=== PATIENT | female | born 1940 | race Caucasian/White ===

== ENCOUNTER 2018-06-06 17:41 | Emergency (ER) | payer MEDICARE, OTHER, SELFPAY ==
[2018-06-06 17:43] VITALS: BP 118/74; PULSE 73; RESP 20; TEMP 36.6; O2SAT 98; BMI 33.0
[2018-06-06 19:44] VITALS: O2SAT 97
--- NOTE | 2018-06-06 19:50 | RAD_ITS ---
STUDY: X-RAY - UNILATERAL RIBS ( RIGHT ) WITH CHEST REASON FOR EXAM: Female, 77 years old. Right rib pain after fall TECHNIQUE - RIBS: 4 view(s) of the ribs. TECHNIQUE - CHEST: Single PA view of the chest. COMPARISON: None. FINDINGS - RIBS: Normal visualized ribs without a demonstrated fracture. FINDINGS - CHEST: The lungs are clear and expanded. There is no demonstrated pleural abnormality. Normal size heart. Normal mediastinum and elva. Normal visualized pulmonary arteries. Normal visualized aortic arch and descending thoracic aorta. There are diffuse degenerative changes of the visualized thoracic spine. Normal visualized ribs, clavicles, and shoulders. There is no demonstrated abnormality of the visualized soft tissue structures of the upper abdomen. RAD/Ribs Uni Min 3V w/PA Chest IMPRESSION: RIBS: Normal x-ray examination of the ribs. CHEST: Degenerative changes, as described above. No demonstrated acute cardiopulmonary process. Electronically Signed: Linda Babin MD at 20:23 EDT Tel , Service support ,
[2018-06-06 21:39] VITALS: PULSE 76; RESP 19; O2SAT 97
--- NOTE | 2018-06-06 22:28 | ED.DCSUM_ITS ---
- ER Visit Summary Date of Service: 06/06/18 Chief Complaint: Shortness of breath and chest pain History of Present Illness: The patient is a 77 F who had a mechanical fall 5 days ago. She did injure her left chest when she fell. She did not hit her head or neck. She did not lose consciousness. She denies head or neck pain. She does have pain in the right side of her chest in the area of her right breast. Worse with breathing such that it makes her mildly short of breath. No left-sided chest pain. No radiation. No nausea, lightheadedness, sweats. No weakness or numbness. She denies blood thinner use. Physical Examination: Afebrile and vital signs unremarkable. Head and neck are atraumatic. Heart is regular rate and rhythm. Lungs clear. Extremities show no evidence of trauma, tenderness, or edema, except for an abrasion to her anterior right knee. Knee shows good range of motion and extension. Neurovascularly intact distally. She is alert and oriented. Normal strength and sensation. Test Results: Chest x-ray and rib series showed no fracture or acute abnormalities. Emergency Department Course and Treatment: Patient declined pain medicine. I believe this is chest wall pain, secondary to her fall. Patient will use over- the-counter remedies. Return for any new or worsening issues. There is nothing to suggest cardiac or vascular pathology. Treatment Plan: As above Disposition: Discharged Impression: 1. Right chest wall pain This note was generated with [employer] dictation software. It may contain incorrect words, spelling, and punctuation that were not noted in review of the chart prior to signing ED Disposition - Plan for ED Patient: Chief Complaint: Shortness of Breath Referrals: Monika Lopez MD [Primary Care Provider] -
--- NOTE | 2018-06-06 22:29 | ED.DEP ---
ED Disposition - Plan for ED Patient: Chief Complaint: Shortness of Breath Instructions: ED Strain Chest Wall Referrals: Monika Lopez MD [Primary Care Provider] -
[2018-06-06 22:34] VITALS: BP 145/68; PULSE 78; RESP 18; O2SAT 96
== END 2018-06-06 22:35 | disposition home or self-care (01) ==
LOC: ED 19:23
PROVIDERS: Emergency Provider Emergency Medicine; Family Provider Internal Medicine; PCP Internal Medicine
DX: R07.89 Other chest pain (principal); S80.211A Abrasion, right knee, initial encounter; W19.XXXA Unspecified fall, initial encounter; Y93.9 Activity, unspecified; Y92.89 Other specified places as the place of occurrence of the external cause; Y99.9 Unspecified external cause status
CPT/HCPCS: 71101; 99282

== ENCOUNTER 2021-02-10 10:45 | Outpatient (RCR) | payer MEDICARE, OTHER, SELFPAY ==
[2021-02-10] MEDS: COVID-19 VACC, MRNA(PFIZER)/PF 30 MCG/0.3 ML SYRINGE IM (14:03)
[2021-03-03] MEDS: COVID-19 VACC, MRNA(PFIZER)/PF 30 MCG/0.3 ML SYRINGE IM (13:46)
== END 2021-05-09 23:59 ==
LOC: IMMUN 10:45
PROVIDERS: PCP Internal Medicine; Visit Provider Family Medicine
DX: Z23 Encounter for immunization (principal)
CPT/HCPCS: 0001A; 0002A; 91300

== ENCOUNTER → 2021-09-07 07:18 | Outpatient (CLI) | payer MEDICARE, OTHER, SELFPAY ==
--- NOTE | 2021-09-07 | IMM_PTH ---
PATIENT: YUSUF MCDOWELL LOC: [facility] U#:[id number] AGE/SX: 85/F ROOM: RE09/07/[address]: Dr. Aye Monet MD : 1940 BED: DIS: SPEC #: [id number] RECD: 09/08/21 10:47 STATUS: PUJA REQ #: [id number] EAN: 09/07/21 00:[address]: Aye Monet DEPT: IMMUNOHISTOCHEMISTRY RECD BY: Ratna Reyes ENTERED: 09/08/21 10:48 SP TYPE: IMMUNO OTHR DR: Dr. Monika Lopez MD Tissues: Left breast, NOS Procedures: CK8 (initial) CALPONIN-1 (add) CK5-6 (add) ER (add) HER2 CORNELIA (add) GA (add) P40 (add) PHYSICIAN & INSTITUTION [place] [id number] SPECIMEN INFORMATION: Tissue Source: Left breast, stereotactic core biopsy Clinical Info: 5 mm oval equal density asymmetry with a macro-lobulated margin in left breast central to nipple middle depth Specimen Number: [id number] #2 CPT code: 39696, 35192 x4, 19877 x3 METHODOLOGY: Deparaffinized sections of prefer/formalin-fixed tissue or PAP/DQ stained slides are incubated with monoclonal/polyclonal antibodies/oligonucleotide probes. Localization is made via biotin free immunoperoxidase method. Appropriate controls are performed and reacted as expected. Results on target cell population are indicated in the following table: RESULTS: ANTIBODY / CLONE RESULT Block 2 CK8 ([id number]) positive Calponin-1 (WD671B) positive, focal Actin (1A4) positive, focal CK5-6 (D5 & 1684) positive P40 (BC28) positive, focal MORPHOMETRIC ANALYSIS ER (clone 6F11) positive (>95%, strong intensity) GA (clone 16/1E2) positive (45%, weak to moderate intensity) Her-2Neu (clone CB11) negative (0) The prognostic test for HER2 is performed on formalin-fixed paraffin embedded tissue. A 3+ (positive) staining pattern is defined as intense, homogeneous, complete, circumferential membranous staining in >10% of contiguous tumor cells. A similar weak (2+) staining pattern is interpreted as equivocal. AMANUEL follow-up testing is recommended for all equivocal cases. Positivity/negativity for ER/GA is reported if > or < 1% of the tumor cells are immuno- reactive, respectively. The ASCO/CAP criteria is used for scoring. Reference: Journal of Clinical Oncology, 2013; 31:9718-9408 & 2010; 16:9550-4593. Duration of fixation: 11 Hrs; Sample Adequate: Yes. These assays have not been validated on decalcified tissues. Results should be interpreted with caution given the likelihood of false negativity on decalcified specimens. These tests were developed and their performance characteristics determined by [facility]. They may not have been cleared or approved by the U.S. Food and Drug Administration. The FDA has determined that such clearance or approval is not necessary. The above immunohistochemical/dualISH markers are ordered and reviewed by the Pathologist. 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 AM:wendy 09/12/2021 Case has been reviewed in consultation with Dr. Gifford who concurs with the above diagnosis. IDC:SJ
--- NOTE | 2021-09-07 08:20 | BRBX_PTH ---
PATIENT: YUSUF MCDOWELL LOC: [facility] U#:[id number] AGE/SX: 85/F ROOM: RE09/07/[address]: Dr. Aye Monet MD : 1940 BED: DIS: SPEC #: [id number] RECD: 09/07/21 09:06 STATUS: PUJA REYoan #: [id number] EAN: 09/07/21 08:[address]: Aye Monet DEPT: SURGICAL PATHOLOGY RECD BY: Kassandra Meraz ENTERED: 09/07/21 13:11 SP TYPE: BREAST BX OTHR DR: Dr. Monika Lopez MD Tissues: Left breast, NOS Procedures: Surgery Specimen Level IV HEADER OPERATION: Left breast stereotactic biopsy PRE-OP DIAGNOSIS: 5 mm oval equal density asymmetry with a macro-lobulated margin in the left breast central to the nipple middle depth TISSUE SUBMITTED: Left breast core tissue ISCHEMIC TIME: 1 minute FIXATION TIME: 11 hours MICROSCOPIC DIAGNOSIS Left breast, stereotactic biopsy: Ductal carcinoma insitu involving intraductal papilloma. Focal intraductal hyperplasia without atypia. Focal microcalcifications. See comment. AM:wendy 09/08/2021 COMMENT Immunohistochemistry ([id number]) for hormonal markers will be reported separately. This case was reviewed and diagnosis discussed with Dr. Stein on 10/19/21 and 10/20/21. Case has been reviewed in consultation with Dr. Gifford who concurs with the above diagnosis. IDC:QUINTIN MICROSCOPIC DESCRIPTION Slides are reviewed. GROSS DESCRIPTION Received in fixative is one container labeled with the patient's name and designated left breast. The specimen consists of multiple elongated fragments of bonilla-yellow fibroadipose tissue that in aggregate measure 5 x 3 x 0.6 cm. The entire specimen is submitted in four cassettes. / QUINTIN:wendy 09/07/21 TC:0 CPT: 58335 ADDENDUM ADDENDUM ADDENDUM ADDENDUM ADDENDUM 10/20/2021 11:47 ADDENDUM 10/20/2021 11:47 ADDENDUM 10/20/2021 11:47 ADDENDUM 10/20/2021 11:47 ADDENDUM 10/20/2021 11:47 Carcinoma greatest dimension = 5.5 mm Carcinoma nuclear grade = 1 AM:rg 10/20/2021
--- NOTE | 2021-09-07 19:59 | OP.PCM_ITS ---
Report of Operation Date of Procedure: 09/07/21 Surgery/Procedure Performed:: stereotactic breast biopsy Surgeon: Aye Monet Type of Anesthesia: Local Specimen's removed: breast tissue Estimated Blood Loss (mL): < 1 ml Description of Procedure: After informed consent was given, the patient was brought into the Breast Biopsy suite. Appropriate time out protocol was followed. The patient was placed in the prone position on the stereotactic biopsy table. The patient?s left breast was then placed in the opening at the head of the biopsy table. A wood machine carver compression mammogram was then obtained in the medial/lateral view. The suspicious radiological lesion was thus identified. Stereo pictures of the lesion were then taken for XYZ coordinates. The Mammotome biopsy stylus was then positioned where it would be entering into the patient?s breast. The skin at this site was then cleansed with a surgical skin preparation. The skin and subcutaneous tissues at this site were then infi ltrated with 1% xylocaine. A small skin incision was made with an 11 blade scalpel. The biopsy stylus was then positioned into the patient?s breast at the proper coordinates of depth. Using the Mammotome vacuum-assist device, several core samples of breast tissue were obtained. A specimen mammogram was the obtained. It revealed that small calcifications were within the specimen. I reviewed this personally and concluded that the tissue sampling was adequate. A hemostatic marker clip was then placed into the biopsy cavity and a wood machine carver film revealed that it was properly deployed. The incision site was closed with a nylon suture. The patient was then placed in the supine position and pressure was applied to the breast until no active bleeding was noted. Dressing was applied to the site. A unilateral mammogram in the CC and MLO view were then taken which revealed that the marker clip was in the same area as the previous suspicious lesion. The patient tolerated the procedure well and was discharged from the Breast Biopsy suite in good condition. Complications none noted
== END ==
PROVIDERS: PCP Internal Medicine; Referring Provider Surgery; Visit Provider Surgery
DX: D05.12 Intraductal carcinoma in situ of left breast (principal)
CPT/HCPCS: 19081; 88305; 88341; 88342; J7050; A4648

== ENCOUNTER 2021-10-03 09:41 | Day surgery (SDC) | payer MEDICARE, OTHER, SELFPAY ==
--- NOTE | 2021-10-02 13:29 | HP.PCM_ITS ---
History and Physical Date of Admission: 10/03/21 HISTORY AND PHYSICAL ? Arielle Zarate 1940 ? ? ? CHIEF COMPLAINT: left breast DCIS ? HPI: The patient is a 81 year old female presents with newly diagnosed left breast DCIS. She underwent US guided left breast biopsy with findings of intraductal papilloma done on 08/02/2021. This lesion was at the 4:00, retroareolar area of the breast. Because of this pathology - it was recommended that she undergo left breast biopsy via wire localization. She obtained a post marker clip mammogram for the US guided biopsy which essentially revealed that the ultrasound lesion did not correlate with the mammographic lesion. Therefore she underwent left stereotactic breast biopsy at [facility] on 09/07/2021. This lesion was at the 6:00 position, inferior aspect of the breast. Pathology from the stereotactic breast biopsy revealed ductal carcinoma in situ arising/involving from intraductal papilloma. She was recommended to continue with the left breast biopsy via wire localization, but I would add on a left breast lumpectomy via wire localization of the DCIS lesion. She notes no problems from the areas of the biopsies. ? ? PAST MEDICAL HISTORY ? Anxiety state, unspecified ? ? Asymptomatic varicose veins ? ? Varicose veins ? Benign mammary dysplasia, unspecified ? ? Benign mammary dys.--benign cyst on both ? Bilateral knee pain 08/10/2010 ? Diverticulosis of colon (without mention of hemorrhage) ? ? Family history of malignant neoplasm of gastrointestinal tract ? ? Internal hemorrhoids without mention of complication ? ? Mental disorder ? ? Other postablative hypothyroidism ? ? Status post radioactive iodine ablation ? Other specified gastritis ? ? Personal history of colonic polyps ? ? Thyrotoxicosis without mention of goiter or other cause, without mention of thyrotoxic crisis or storm ? ? hypothyrodism ? PAST SURGICAL HISTORY ? ABDOMINAL SURGERY HX ? ? ? BREAST BIOPSY W/STEREOTACTIC GUIDANCE Left 09/07/2021 ? COLONOSCOP W/ OR W/O BRSH SPEC ? 08/08/2004 ? Colonoscopy-- ? COLONOSCOP W/ OR W/O BRSH SPEC ? 12/05/2005 ? Colonoscopy, repeat in 5 years ? COLONOSCOP W/ OR W/O BRSH SPEC ? 01/23/2011 ? COLONOSCOP W/ OR W/O BRSH SPEC ? 05/17/2016 ? Colonoscopy ? COLONOSCOP W/ OR W/O BRSH SPEC ? 05/23/2021 ? EGD ? 08/08/2004 ? biopsy ? JOINT REPLACEMENT HX ? ? ? PAST SURGICAL HISTORY OF ? 05/2008 ? Left knee reconstruction and replacement (At [facility] in [place]) ? PAST SURGICAL HISTORY OF ? 2008 ? right knee replacement ? REMOVAL ADENOIDS,PRIMARY,<12 Y/O ? ? ? Adenoidectomy ? REMOVAL GALLBLADDER ? ? ? Cholecystectomy ? REMOVAL OF TONSILS,<12 Y/O ? ? ? Tonsillectomy-at age 4 years ? SIGMOIDOSCOPY FLEX DIAG ? 10/09/2004 ? Sigmoidoscopy- polypectomy ? TONSILLECTOMY HX ? Current Outpatient Medications ? levothyroxine (LEVOXYL) 75 mcg tablet Take 1 tablet by mouth once daily. Take on empty stomach. For thyroid. ? OLANZapine (ZYPREXA) 5 mg tablet Take 1 tablet by mouth daily at bedtime. ? escitalopram oxalate (LEXAPRO) 10 mg tablet Take 1 tablet by mouth once daily. ? polyethylene glycol 3350 (MIRALAX, GLYCOLAX) 17 gram/dose powder Use as directed for Miralax / Gatorade Bowel Prep Kit ? Bisacodyl (DULCOLAX) 5 mg tab Use as directed for Miralax / Gatorade Bowel Prep Kit ? tiZANidine (ZANAFLEX) 2 mg tablet Take 1 tablet by mouth every 8 hours as needed. for right side back pain. May make drowsy ? mometasone (ELOCON) 0.1 % cream Apply to affected area once daily. For af fected area on scalp (Patient not taking: Reported on 08/02/2021 ? ? ALLERGIES: Augmentin [Amoxicillin-Pot Clavulanate], Cephalosporins, Keflex [Cephalexin], Latex, Levaquin [Levofloxacin], and Seroquel [Quetiapine] ? PERSONAL HISTORY: ? Smoking status: Never Smoker ? Smokeless tobacco: Never Used Vaping Use ? Vaping Use: Never used Substance Use Topics ? Alcohol use: No ? Drug use: No ? FAMILY HISTORY: FAMILY HISTORY Problem Relation Age of Onset ? Stroke Mother 90 ? Colon Polyps Father ? ? in his 80's ? Cancer Father ? ? pancreatic and colon ? Hypertension Father ? ? other (Aortic Aneurysm) Father ? ? AAA-- from this ? other (Bladder Cancer) Brother ? ? Was told had kidney ? Cancer Maternal Grandmother ? ? pancreatic or liver cancer--they were not sure ? Heart Paternal Grandfather ? ? AL at age 90 ? other (Multiple Sclerosis) Son ? ? Heart Maternal Aunt ? ? AL ? Cancer Maternal Uncle ? ? unkown type ? Breast Cancer Maternal Uncle ? ? Several Aunts ? ? REVIEW OF SYSTEMS: Denies fevers ? PHYSICAL EXAMINATION: General: The patient is 81 year old female, well nourished, well hydrated in no acute distress. The patient is oriented to time, place, and person. VITALS: Blood pressure 132/72, pulse 88, temperature 37 ?C (98.6 ?F), height 167.6 cm (5' 6), weight 94.3 kg (208 lb), SpO2 95 %. Body mass index is 33.57 kg/m?. HEENT: Normal cephalic, atraumatic, pupils are equally round, sclera are clear, neck is supple Respiratory: Normal respiratory excursion and pattern. Chest/breast: healing biopsy sites Abdomen: benign . ? Extremities: no clubbing, cyanosis or edema. ? Neuro: non focal ? Psych: calm and appropriate RADIOLOGIC STUDIES: As Noted ? IMPRESSION: left breast DCIS, intraductal papilloma at another location ? PLAN: The patient is already scheduled for a left breast biopsy via wire localization for intraductal papilloma by US needle core biopsy. I have therefore recommended for patient to undergo left breast lumpectomy via wire localization for the newly diagnosed DCIS and to continue with the plan for left breast biopsy. This will require placement of two wires for localization and also for two incisions as these are different locations. Risks, including but not limited to: infection, bleeding, scar tissue, injury to any blood vessels/nerves, cosmetic deformity, etc. - she understands and agrees to proceed. The alternative would be to undergo a left breast mastectomy, patient does not want to do that. I have answered all her questions and she has no further questions. ? ? Aye Monet MD
--- NOTE | 2021-10-03 | BRBX_PTH ---
PATIENT: YUSUF MCDOWELL [place]: [facility] [place] U#:[id number] AGE/SX: 81/F ROOM: RE10/03/[address]: Dr. Aye Monet MD : 1940 BED: DIS: 10/03/2021 SPEC #: [id number] RECD: 10/03/21 13:12 STATUS: PUJA REYoan #: [id number] EAN: 10/03/21 00:[address]: Aye Monet DEPT: SURGICAL PATHOLOGY RECD BY: Ratna Reyes ENTERED: 10/03/21 14:17 SP TYPE: BREAST BX OTHR DR: Dr. Monika Lopez MD Tissues: Left breast, NOS Procedures: Surgery Specimen Level V HEADER OPERATION: Breast lumpectomy, NL PRE-OP DIAGNOSIS: Intraductal papilloma left breast TISSUE SUBMITTED: Left breast lumpectomy, two long sutures ? nipple, one long suture ? lateral, one short suture ? superior, one white suture ? posterior border MICROSCOPIC DIAGNOSIS Left breast, lumpectomy with needle localization: Negative for residual ductal carcinoma in situ. Changes consistent with previous biopsy site. Focal intraductal hyperplasia without atypia. Ductal dilatation and periductal chronic inflammation. SJ:wendy 10/06/2021 COMMENT Please make reference to previous specimen ([id number]) left breast, stereotactic core biopsy with diagnosis of ?ductal carcinoma in situ involving intraductal papilloma and focal intraductal hyperplasia without atypia. MICROSCOPIC DESCRIPTION Slides are reviewed. GROSS DESCRIPTION Received fresh for intraoperative consultation labeled with the patient's name is a specimen designated left breast lumpectomy. The specimen consists of a piece of fibroadipose tissue with needle localization x2 measuring 9 x 7 x 5 cm. A piece of skin is noted anteriorly measuring 2 x 0.3 cm. The specimen is inked as follows: anterior - yellow, posterior - black, superior - blue, inferior - green, medial - orange and lateral ? red, nipple ? kala. Serial sections reveal a biopsy cavity measuring 1 x 1 x 1 cm. This biopsy cavity is 1 cm away from anterior and inferior margins. This information is conveyed to the surgeon intraoperatively. Sections of the rest of the specimen reveal bonilla-yellow adipose cut surfaces mixed with bonilla-white fibrous area. Parking Lot Attendant sections are submitted in 12 cassettes as follows: 1 ? skin and perpendicular medial and lateral margin, 2 ? perpendicular superior and inferior margin, 3 ? perpendicular anterior and posterior margins, 4-7 ? biopsy cavity with surrounding area biopsy, 8 & 9 ? area marked as nipple, 10-12 ? b2b outside sales representative sections from the other areas. Sections will be submitted after additional fixation. / QUINTIN:wendy 10/04/21 TC:5 CPT: 70517, 51420
[2021-10-03 10:18] VITALS: BP 147/66; PULSE 58; RESP 16; TEMP 36.4; O2SAT 99; BMI 32.8
[2021-10-03] MEDS: Lactated Ringers 1,000 ML 75 ML IV (10:23)
--- NOTE | 2021-10-03 11:58 | BI_ITS ---
SURGICAL BREAST SPECIMEN RADIOGRAPH CLINICAL: Document presence of tissue clip markers in biopsy specimen. FINDINGS: Specimen shows presence of tissue clip markers. Pathology is pending and an addendum to the biopsy report will be performed after the final pathologic diagnosis is rendered. Electronically Signed: Yuan Barrios MD at 14:14 EDT , Service support , BI/Breast Biopsy Specimen
--- NOTE | 2021-10-03 12:02 | OP.PCM_ITS ---
Report of Operation Date of Procedure: 10/03/21 Pre-Operative Diagnosis: intraductal papilloma of left breast, DCIS of left víctor ast Post-Operative Diagnosis: same Surgery/Procedure Performed:: left breast lumpectomy x 2 Surgeon: Aye Monet executive marketing assistant: Andrew Monzon Type of Anesthesia: General Anesthesiologist: Tommy Hay Description of Procedure: After informed consent was given, the patient was brought into the Breast Stereotactic Radiology suite. Appropriate time out protocol was followed. The patient was then placed in the prone position on the [place] stereotactic table. The patient?s left breast was placed in the opening at the head of the table. A hospitality team member compression mammogram was then obtained in the lateral view. The inferior marker clip that was previously placed was identified. Stereo pictures of the lesion were then taken for XYZ coordinates. The Kopans needle was then positioned where it would be entering into the patient?s breast. The skin at this site was then cleansed with a surgical skin preparation. The skin and subcutaneous tissues at this site were then infiltrated with 1% xylocaine. The Kopans needle was then positioned into the patient?s breast at the proper coordinates of depth. A hospitality team member film was obtained which revealed the wire in proper position. The patient was then placed in the supine position and the wire was taped into place. The other marker clip that was previously placed was identified. Stereo pictures of the lesion were then taken for XYZ coordinates. The Kopans needle w as then positioned where it would be entering into the patient?s breast. The skin at this site was then cleansed with a surgical skin preparation. The skin and subcutaneous tissues at this site were then infiltrated with 1% xylocaine. The Kopans needle was then pos A unilateral mammogram in the CC view was then taken for use in the OR. The patient tolerated this portion of the procedure well and was brought to the AC awaiting surgery in the OR. The patient was then brought to the Operating Room. Appropriate time out protocol was followed. The patient was then placed on the operating table in the supine position. Two wires had already been placed in the stereotactic biopsy room in the radiology department as described above. The left breast with the wires in placed was then prepped with a sterile surgical skin preparation and sterile surgical drapes were placed. The skin and subcutaneous tissues at the sites of the breast lesion was then infiltrated with 1% xylocaine with epinephrine. The position of the wires and the mammograms were carefully examined. I felt that rather than make two incision sites, the lesions were close in proximity to be able to extract the breast tissue via one incision. A low transverse incision was made in the left breast with a 15 blade scalpel after infiltrating the skin and subcutaneous tissues with local anesthetic. The superior wire was brought into the wound from outside. The breast tissue surrounding both wires was then carefully palpated out and from the surrounding tissues using electrocautery. There was dense breast tissue attached to the nipple, therefore a suture was placed at the transected nipple ducts for pathology. The breast tissue, once from the breast, was then forwarded to the radiology department, where a specimen mammogram revealed that the marker clip was within the specimen. The breast tissue was then forwarded to pathology for analysis. Pathology review revealed that the closest margin was inferior with 1 cm. The wound cavity was carefully examined. No further suspicious tissue was palpated or visualized. Hemostasis was carefully controlled with electrocautery. The subdermal tissues were then approximated with vicryl suture. The incision was then reapproximated close using running monocryl suture. The incision was then reapproximated close using running monocryl suture. Cavilon and steristrips were then placed to reinforce the skin closure at both sites. Sponge, needle, and instrument count were verified and correct at the time of skin closure. Sterile dressings were then applied to both sites. The patient was then brought to the Recovery Room in stable condition.
[2021-10-03] MEDS: Lidocaine 1% /Epi 1:100 (50ml) 50 ML VIAL ×2 (12:28→13:22)
[2021-10-03 13:35] VITALS: BP 122/58; BP 147/66; PULSE 76; RESP 16; TEMP 36.3; O2SAT 95
[2021-10-03 13:45] VITALS: BP 122/58; BP 147/66; PULSE 75; RESP 16; O2SAT 96
[2021-10-03 14:00] VITALS: BP 124/76; BP 147/66; PULSE 77; RESP 16; O2SAT 98
[2021-10-03 14:15] VITALS: BP 128/65; BP 147/66; PULSE 75; RESP 16; TEMP 36.4; O2SAT 96
[2021-10-03 14:47] VITALS: BP 147/66
--- NOTE | 2021-10-03 15:23 | DCINST_ITS ---
Discharge Instructions Follow Up Care Test Results: Test results from this visit will be discussed in further detail at your follow-up appointment, if applicable. Discharge Plan Admission Attending Provider: Aye Monet Primary Care Provider: Monika Lopez Instructions Additional Instructions / Restrictions: Recommended pain control regimen - May take 600 mg ibuprofen (Motrin) and then in 3-4 hours, may take 650 mg acetaminophen (Tylenol), then in 3-4 hours may take 600 mg ibuprofen, then in 3- 4 hours may take 650 mg acetaminophen and so on for 2-3 days May take narcotic pain medication for pain that is not controlled by above and at night for comfort through the night Leave dressings in place May shower, do not scrub in the areas of the dressings as they may unravel. Do not soak - no tub baths/swimming Ice applied to areas of discomfort may help For breast surgeries - wear supportive bra during the day to prevent the weight of your breasts from pulling on the incisional site. Please call my office for an appointment to see me in 1 week. Office number is If any questions, please call my office at and ask the polishing machine operator for the general surgery nurses desk Discharge Orders/Prescriptions Prescriptions: New hydrocodone-acetaminophen 5-325 mg tablet 1 tab PO Q8H 5 Days Qty: 15 RF: 0 No Action levothyroxine 100 MCG tablet 75 mcg PO DAILY RF: 0 olanzapine 5 MG tablet,disintegrating 5 mg PO DAILY RF: 0 escitalopram oxalate 10 MG tablet 10 mg PO DAILY RF: 0 Referrals / Follow Up: Monika Lopez MD [Primary Care Provider] -
== END 2021-10-03 15:06 ==
LOC: SDC 09:43 → AC 09:44
PROVIDERS: PCP Internal Medicine; Referring Provider Surgery; Visit Provider Surgery
PROC: (CPT 19301; principal; 2021-10-03 11:30)
DX: D05.12 Intraductal carcinoma in situ of left breast (principal); Z79.51 Long term (current) use of inhaled steroids; Z79.899 Other long term (current) drug therapy; Z80.3 Family history of malignant neoplasm of breast; Z82.49 Family history of ischemic heart disease and other diseases of the circulatory system; Z87.19 Personal history of other diseases of the digestive system; Z88.0 Allergy status to penicillin; Z88.1 Allergy status to other antibiotic agents; Z90.49 Acquired absence of other specified parts of digestive tract; Z96.653 Presence of artificial knee joint, bilateral
CPT/HCPCS: 19301; 19281; 19282; 76098; 88305; 88307; J7120; J2405

== ENCOUNTER 2022-06-06 12:39 | Emergency (ER) | payer MEDICARE, OTHER, SELFPAY ==
[2022-06-06] VITALS (8 sets, daily range): BP systolic 102–147; BP diastolic 51–86; PULSE 64–82; RESP 15–18; TEMP 35.6; O2SAT 97–99; BMI 30.9
[2022-06-06 13:22] LABS: Amphetamine Urine VISTA NEGATIVE (<1000 ng/mL); Barbiturate Urine VISTA NEGATIVE (< 200 ng/mL); Benzodiazepine Urine VISTA NEGATIVE (< 200 ng/mL); Cocaine Urine VISTA NEGATIVE (< 300 ng/mL); Ecstacy Urine VISTA NEGATIVE (< 500 ng/mL); Methadone Urine VISTA NEGATIVE (< 300 ng/mL); PCP Urine VISTA NEGATIVE (< 25 ng/mL); THC Urine VISTA NEGATIVE (< 50 ng/mL); Vista UDS pH Range 7
[2022-06-06 13:58] LABS: Absolute Lymphocyte Count 1.83 X10^3/uL (0.83-4.51); Absolute Neutrophil Count 5.8 X10^3/uL (2.0-7.7); Basophil# 0.04 X10^3/uL; Basophil% 0.5 % (0-1); Eosinophil# 0.04 X10^3/uL; Eosinophils% 0.5 % (0-5); Hematocrit 45.4 % (37-47); Lymphocyte # 1.83 X10^3/ul (0.83-4.51); Lymphocyte % 21.8 % (19-41); Mean Corpuscular Hgb 30.9 pg (27.0-32.0); Mean Corpuscular Volume 93.6 fL (81-99); Mean Platelet Vol. 10.9 fl (6.2-12.0); Monocyte# 0.67 X10^3/uL; NRBC Flagged by Analyzer 0 % (0-5); Neutrophil # 5.79 X10^3/uL (2.7-7.7); Neutrophil % 68.7 % (47-70); Platelet Count 183 K/mm3 (150-450); RBC Distribution Width CV 13.7 % (11.6-14.6); RBC Distribution Width SD 47.2 fl (35.1-43.9); Red Blood Count 4.85 M/mm3 (4.2-5.4); White Blood Count 8.4 K/mm3 (4.4-11.0)
[2022-06-06 14:08] LABS: Anion Gap 7 (5-15); BUN 6 mg/dL (7-18); BUN/Creat Ratio 6.1 RATIO (10-20); Calcium,Total 9.8 mg/dL (8.5-10.1); Chloride 105 mmol/L (98-107); Creatinine, Serum 0.99 mg/dL (0.55-1.02); EST Glomerular Filtration Rate 58 mL/min (>60); Est Glom Filt Rate - Afr Amer 70 mL/min (>60); Estimated Creatinine Clearance 43.14 ml/min; Glucose 109 mg/dL (74-106); Potassium 3.3 mmol/L (3.5-5.1); Sodium Level 140 mmol/L (136-145)
--- NOTE | 2022-06-06 14:32 | EX.ED.VIS.PS ---
HPI HPI - Psych History of Present Illness Chief Complaint: Mental Health Informant: patient and mental health staff Narrative Narrative: 81-year-old female sent in by counseling center after being evaluated for paranoia. Patient states there is someone watching her through her phone. She is fearful of her phone and does not know what to do. She is fearful that people are out to get her. She lives alone. Counselor concerned about her ability to care for herself. She denies suicidal or homicidal ideation. Denies alcohol or drug use. Recent Illness/Hospitalization: No PFSH PFSH Medical History Ambulates with cane Depression Hx of thyroid disease Injury of head and neck Non-smoker Thyroid disease Wears dentures Wears glasses Home Medications escitalopram oxalate 10 mg tablet 10 mg PO DAILY 06/06/18 [History Last Taken Unknown] levothyroxine 100 mcg tablet 75 mcg PO DAILY 06/06/18 [History Last Taken Unknown] olanzapine 5 mg disintegrating tablet 5 mg PO DAILY 06/06/18 [History Last Taken Unknown] hydrocodone-acetaminophen 5-325mg 5mg-325mg 1 tab PO Q8H 5 days #15 tabs 10/03/21 [Rx Last Taken Unknown] Allergy/AdvReac Type Severity Reaction Status Date / Time amoxicillin [From Augmentin] Allergy Other Verified 06/06/22 12:43 cephalexin [From Keflex] Allergy Rash Verified 06/06/22 12:43 Cephalosporins Allergy Other Verified 06/06/22 12:43 clavulanic acid Allergy Other Verified 06/06/22 12:43 [From Augmentin] levofloxacin [From Levaquin] Allergy Other Verified 06/06/22 12:43 quetiapine [From Seroquel] Allergy Other Verified 06/06/22 12:43 Surgical History Hx laparoscopic cholecystectomy Hx of adenoidectomy Hx of breast biopsy Hx of tonsillectomy Hx of total knee arthroplasty Social History Smoking Status: Never smoker ROS ROS ED Constitutional Constitutional ED: Denies fever(s) Eyes Eyes: Denies change in vision ENT ENT ED: Denies rhinorrhea Cardiovascular Cardiovascular: Denies chest pain Respiratory/Chest Respiratory/Chest: Denies dyspnea Gastrointestinal Gastrointestinal: Denies abdominal pain Musculoskeletal Musculoskeletal: Denies back pain Integumentary Denies rash Neurologic Neurologic: Denies headache(s), paresthesias or weakness Psychiatric Psychiatric: Reports anxiety; Denies suicidal ideation EXAM Physical Exam Const Vital Signs: 06/06/22 12:40 06/06/22 14:01 Temperature 96.1 F L Temperature Source Temporal Pulse Rate 81 Respiratory Rate 18 15 Blood Pressure 147/86 H Blood Pressure Mean 106 Pulse Ox 97 Oxygen Delivery Method Room Air Room Air Positive well nourished and well developed General Appearance ED: well developed HEENT Reports moist mucous membranes Eyes PERRL and EOMs intact bilaterally Neck supple Resp normal respiratory effort and clear to auscultation bilaterally Cardio Rate: regular rate GI non-tender Extremity normal to inspection Neuro oriented x3, CN's II-XII intact bilaterally and no sensory deficits noted Psych denies suicidal ideation Psych Narrative: Paranoid thoughts and delusions. MDM MDM MDM Narrative Medical decision making narrative: [place] slip was completed by counseling center. Plan for medical clearance and transfer to psychiatric hospital for stabilization. CBC, chemistries are unremarkable. Urine tox is negative. Alcohol is pending. COVID is negative. Disposition pending counseling center. Lab Data Attestation: I reviewed the patient's lab results. Labs: Laboratory Results - last 24 hr 06/06/22 06/06/22 06/06/22 13:00 13:50 13:50 WBC 8.4 RBC 4.85 Hgb 15.0 Hct 45.4 MCV 93.6 MCH 30.9 MCHC 33.0 RDW Std Deviation 47.2 H RDW Coeff of Pinky 13.7 Plt Count 183 MPV 10.9 Immature Gran % (Auto) 0.500 Neut % (Auto) 68.7 Lymph % (Auto) 21.8 [place] % (Auto) 8.0 Eos % (Auto) 0.5 Baso % (Auto) 0.5 Absolute Neuts (auto) 5.8 Absolute Lymphs (auto) 1.83 Nucleated RBC % 0 Sodium 140 Potassium 3.3 L Chloride 105 Carbon Dioxide 28.0 Anion Gap 7 BUN 6 L Creatinine 0.99 Estim Creat Clear Calc 43.14 Est GFR (MDRD) Af Amer 70 Est GFR (MDRD) Non-Af 58 L BUN/Creatinine Ratio 6.1 L Glucose 109 H Calcium 9.8 Urine Opiates Screen NEGATIVE Urine Methadone Screen NEGATIVE Ur Barbiturates Screen NEGATIVE Ur Phencyclidine Scrn NEGATIVE Ur Amphetamines Screen NEGATIVE MDMA (Ecstasy) Screen NEGATIVE U Benzodiazepines Scrn NEGATIVE Urine Cocaine Screen NEGATIVE U Cannabinoids Screen NEGATIVE Ur Drug Screen Comment Ethyl Alcohol 06/06/22 13:50 WBC RBC Hgb Hct MCV MCH MCHC RDW Std Deviation RDW Coeff of Pinky Plt Count MPV Immature Gran % (Auto) Neut % (Auto) Lymph % (Auto) [place] % (Auto) Eos % (Auto) Baso % (Auto) Absolute Neuts (auto) Absolute Lymphs (auto) Nucleated RBC % Sodium Potassium Chloride Carbon Dioxide Anion Gap BUN Creatinine Estim Creat Clear Calc Est GFR (MDRD) Af Amer Est GFR (MDRD) Non-Af BUN/Creatinine Ratio Glucose Calcium Urine Opiates Screen Urine Methadone Screen Ur Barbiturates Screen Ur Phencyclidine Scrn Ur Amphetamines Screen MDMA (Ecstasy) Screen U Benzodiazepines Scrn Urine Cocaine Screen U Cannabinoids Screen Ur Drug Screen Comment Ethyl Alcohol < 3.0 Discharge Plan Triage Chief Complaint: Mental Health ED Provider: Halle Younger Dx/Rx/DC Orders Clinical Impression: Paranoid behavior Prescriptions: No Action levothyroxine 100 MCG tablet 75 mcg PO DAILY olanzapine 5 MG tablet,disintegrating 5 mg PO DAILY escitalopram oxalate 10 MG tablet 10 mg PO DAILY hydrocodone-acetaminophen 5-325 mg tablet 1 tab PO Q8H 5 Days Qty: 15 0RF Primary Care Provider: Monika Lopez Referrals: Monika Lopez MD [Primary Care Provider] - Disposition Disposition: Psychiatric Hospital or Unit
[2022-06-06 14:39] LABS: Alcohol, Blood (Medical)-Serum < 3.0 mg/dL
--- NOTE | 2022-06-06 14:55 | ED.RN ---
son of patient arrived to hospital. pt agreed to have son in room. paco garcia rn [id number]
--- NOTE | 2022-06-06 16:47 | NURSING ---
FAXED CHART TO [facility]
--- NOTE | 2022-06-06 22:25 | NURSING ---
report called to je
[2022-06-07] VITALS: RESP 15
[2022-06-07 00:22] VITALS: BP 131/74; PULSE 70; RESP 17; TEMP 36.6; O2SAT 95
== END 2022-06-07 01:04 ==
PROVIDERS: Emergency Provider Emergency Medicine; PCP Internal Medicine; Visit Provider Emergency Medicine
DX: F23 Brief psychotic disorder (principal); F32.A Depression, unspecified; E07.9 Disorder of thyroid, unspecified; F41.9 Anxiety disorder, unspecified; Z79.899 Other long term (current) drug therapy
CPT/HCPCS: 36415; 80048; 80307; 82077; 85025; 87811; 99285

== ENCOUNTER → 2022-09-14 | Outpatient (CLI) | payer MEDICARE, OTHER, SELFPAY ==
--- NOTE | 2022-09-14 08:10 | CT_ITS ---
STUDY: CT MAXILLOFACIAL SINUSES REASON FOR EXAM: Female, 82 years old. SINUSITIS RADIATION DOSAGE (If Supplied By Facility): CTDIvol = ( 33.06 ) mGy, DLP = ( 837.98 ) mGycm TECHNIQUE: The patient was scanned in a multi detector CT scanner. High resolution axial imaging was performed without the administration of intravenous contrast material. Sagittal and coronal images were reconstructed. Individualized dose optimization techniques were used for this CT. COMPARISON: None. FINDINGS: FRONTAL SINUSES: Normal aeration, without mucosal inflammatory disease. ETHMOIDAL SINUSES: Normal aeration, without mucosal inflammatory disease. MAXILLARY SINUSES: Normal aeration, without mucosal inflammatory disease. SPHENOIDAL SINUSES: Normal aeration, without mucosal inflammatory disease. There is patency of the bilateral maxillary infundibuli with normal uncinate processes, ethmoid bullae, and hiatus semilunaris. Normal bilateral middle turbinates. Normal bilateral inferior turbinates. Normal midline nasal septum. There is patency of the bilateral nasal airways. The visualized osseous structures are normal. The visualized bilateral orbital contents are normal. CT/Sinus/Facial Bone IMPRESSION: Normal CT examination of the maxillofacial sinuses. Electronically Signed: Yuan Barrios MD at 14:13 EDT ,
== END | disposition home or self-care (01) ==
LOC: CT 08:08
PROVIDERS: PCP Internal Medicine; Referring Provider Otolaryngology Otolaryngology/Facial Plastic Surgery; Visit Provider Otolaryngology Otolaryngology/Facial Plastic Surgery
DX: J32.8 Other chronic sinusitis (principal)
CPT/HCPCS: 70486